=== PATIENT | female | born 1990 | race Caucasian/White ===

== ENCOUNTER 2024-06-11 20:17 | Emergency (ER) | payer MEDICAID, SELFPAY ==
[2024-06-11 20:17] VITALS: BMI 24.0
[2024-06-11 20:36] VITALS: BP 129/83; PULSE 118; RESP 18; TEMP 37; O2SAT 98
--- NOTE | 2024-06-11 20:49 | PD.EDRME ---
Rapid Medical Screening Exam [facility] Arrival date/time: 06/11/24 20:17 33F with history of marijuana use presents to ED with 2 weeks of sore/blister on tongue. Counseled to see PCP for possible referral for biopsy. Chief Complaint: Dental/Oral/Throat Vital signs: Vital Signs Temperature 98.6 F 06/11/24 20:36 Pulse Rate 118 H 06/11/24 20:36 Respiratory Rate 18 06/11/24 20:36 Blood Pressure 129/83 06/11/24 20:36 Pulse Oximetry (%) 98 06/11/24 20:36 Oxygen Delivery Method Room Air 06/11/24 20:36
--- NOTE | 2024-06-11 20:51 | PC.NURSE ---
pt seen walking out of E.R.
== END 2024-06-11 20:51 | disposition left against medical advice (07) ==
PROVIDERS: Emergency Provider Emergency Medicine
DX: K13.79 Other lesions of oral mucosa (principal); Z53.21 Procedure and treatment not carried out due to patient leaving prior to being seen by health care provider
CPT/HCPCS: 99281